=== PATIENT | female | born 1960 ===

== ENCOUNTER 2025-05-25 09:00 | Day surgery (SDC) | payer OTHER ==
[2025-05-23 11:01] LABS: BASO % 0.9 % (0.1-1.2); EOS # 0.15 (0.04-0.54); EOS % 2.8 % (0.7-7.0); LYMPH # 2.17 (1.18-3.74); LYMPH % 40.9 % (19.3-53.1); MEAN PLATELET VOLUME 9.20 fl (9.4-12.4); MONO # 0.44 (0.24-0.82); MONO % 8.3 % (4.7-12.5); NEUT # 2.48 (1.56-6.13); NEUT % 46.9 % (34.0-71.1); RED CELL DISTRIBUTION WIDTH 12.3 % (11.6-14.4); URINE APPEARANCE Clear; URINE BILIRRUBIN Negative (NEGATIVE); URINE BLOOD Negative; URINE COLOR Yellow; URINE GLUCOSE Negative (NEGATIVE); URINE KETONE Negative (NEGATIVE); URINE LEUKOCYTE Trace; URINE NITRATE Positive; URINE PROTEIN Negative (NEGATIVE); URINE UROBILINOGEN 0.2 E.U./dl
[2025-05-23 11:02] LABS: URINE EPITHELIAL CELLS 5.0 uL (0.0-38.8); URINE RBC 6.4 uL (0.0-20.8); URINE WBC 84.2 uL (0.0-23.2)
[2025-05-23 11:10] LABS: URINE BACTERIA > 9821.5 uL (0.0-1933); URINE CAST 0.00 uL (0.0-1.40)
[2025-05-23 11:24] LABS: INR 1.05
[2025-05-23 11:31] LABS: ALT/SGPT 26.0 U/L (12-78); AST/SGOT 18.0 U/L (15-37); BILIRUBIN TOTAL 0.64 mg/dL (0.3-1.2); BUN CREA RATIO 17.0 (7.0-25.0); CREATININE SERUM 0.6 mg/dL (0.55-1.02); GFR 100.64; GLOBULINA 3.2 G/DL (2.4-3.5); GLUCOSE FASTING 93.0 mg/dL (65-100); OSMOLALITY SERUM 282.0 MOSM/KG (275-295)
[2025-05-23 11:54] LABS: COVID-19 AG NEGATIVE (NEGATIVE)
[2025-05-23 12:30] VITALS: BP 119/79
[~2025-05-25] VITALS: Ht 162.6 cm; Wt 61.2 kg
[~2025-05-25 09:00] MED LIST: COZAAR25 MG PO; LEVO-T75 MCG PO; LIPITOR20 MG PO; PLAQUENIL PO
[2025-05-25] MEDS ORDERED: CHLORHEXIDINE GLUCONATE 120 ML BOTTLE TOP ONE (10:45)
[2025-05-25] MEDS ORDERED: CEFAZOLIN SODIUM 1,000 MG VIAL IV ONE (10:45)
== END 2025-05-25 14:10 | disposition home or self-care (01) ==
LOC: CIR.AMB 09:00
PROVIDERS: ATTEND Surgery
DX: C50.512 Malignant neoplasm of lower-outer quadrant of left female breast (principal); R59.0 Localized enlarged lymph nodes